=== PATIENT | female | born 1960 | race Caucasian/White ===

== ENCOUNTER 2017-02-19 15:51 | Inpatient (IN) | payer OTHER ==
--- NOTE | ~2017-02-19 | PN ---
Unit #: [id number] #: [id number] Patient: SILVIO COBIAN [id number] [facility] [address] [place] [address] [id number] I MR#: [id number] NAME: SILVIO COBIAN ROOM: P206 Age: 56 Sex: F Admission Date: 02/20/2017 : 1960 Attending Physician: Stefan Morrison M.D. Admitting Physician: Stefan Morrison M.D. Primary Care Physician: Generic Doctor Not In System [facility] PROGRESS NOTES DATE OF SERVICE: 02/21/2017 DISCUSSION Ms. Smith is a 56-year-old female, seen on 02/21/2017. The patient interviewed, chart reviewed, and obtained information from nursing staff. The patient's vital signs; temperature 97.9, pulse 75, blood pressure 122/86. The patient is still very tremulous, anxiety, restlessness, and trouble sleeping, nausea, still having withdrawal from alcohol. Complete review of systems unremarkable. MENTAL STATUS EXAMINATION General appearance, the patient dressed casually. Attention span and concentration, fair. Oriented in place and person. Mood and affect, labile. Speech, monotone. Thought process, concrete. The patient denied any thoughts of harming self or others, but sad and dysphoric. Recent and remote memory, poor. Insight and judgment, poor. DIAGNOSES 1. Alcohol use disorder, severe. 2. Mood disorder, not otherwise specified. ASSESSMENT AND PLAN Advised to continue with current medication and therapeutic protocol. If needed, consider further adjustment of medication. Dictated by... Christoph Leon/shine TD: 02/22/2017 16:01 JOB #: [id number] Unit #: [id number] #: [id number] Patient: SILVIO COBIAN PROGRESS NOTES Page 1 of 1 X Stefan Morrison MD PROGRESS NOTE
--- NOTE | ~2017-02-19 | DS ---
Unit #: [id number] #: [id number] Patient: SILVIO COBIAN [id number] [facility] [address] [place] [address] [id number] I MR#: [id number] NAME: SILVIO COBIAN ROOM: [facility] Age: 56 Sex: F Admission Date: 02/20/2017 : 1960 Discharge Date: 02/25/2017 Attending Physician: Stefan Morrison M.D. Primary Care Physician: Generic Doctor Not In System DISCHARGE SUMMARY REASON FOR ADMISSION Alcohol withdrawal. DIAGNOSTIC STUDIES LABORATORY RESULTS: Urine drug screen positive for benzodiazepine. BUN 5, potassium 3.1, magnesium 1.5. HOSPITAL COURSE The patient was admitted to inpatient unit on 02/20/2017 and discharged on 02/25/2017. The patient was treated on the inpatient unit with detox protocol and detox monitoring. The patient was also followed by the medical doctor for abnormal lab. The patient was treated with expressive therapy, medication management, psychoeducation, and psychotherapy. The patient was responsive to treatment, showed improvement. Subsequently, the patient was discharged with a plan to follow up in outpatient program. DISCHARGE MEDICATIONS Trazodone 50 mg at bedtime for sleep. DISCHARGE DIAGNOSES Psychiatric: Alcohol use disorder, severe, F10.20; mood disorder, not otherwise specified, F32.9. Secondary diagnosis: Deferred. Medical diagnosis: None. Stressors: Psychosocial stressors. DISCHARGE INSTRUCTIONS The patient to follow up in outpatient clinic as per social media manager. CONDITION ON DISCHARGE The patient was pleasant and cooperative. Denied any psychotic symptom or any suicidal ideation. PROGNOSIS Guarded. DIET AND ACTIVITY As tolerated. Unit #: [id number] #: [id number] Patient: SILVIO COBIAN Dictated by... Christoph Leon/shine TD: 02/25/2017 16:51 JOB #: [id number] DISCHARGE SUMMARY Page 1 of 1 X Stefan Morrison MD X DISCHARGE SUMMARY
--- NOTE | ~2017-02-19 | PN ---
Unit #: [id number] #: [id number] Patient: SILVIO COBIAN [id number] [facility] [address] [place] [address] [id number] I MR#: [id number] NAME: SILVIO COBIAN ROOM: P211 Age: 56 Sex: F Admission Date: 02/20/2017 : 1960 Attending Physician: Stefan Morrison M.D. Admitting Physician: Stefan Morrison M.D. Primary Care Physician: Generic Doctor Not In System [facility] PROGRESS NOTES DATE OF SERVICE: 02/23/2017 DISCUSSION Ms. Smith is a 56-year-old female, seen on 02/23/2017. The patient is currently detoxing from alcohol, still having anxiety, nervousness, and tremor, but reports feeling better. The patient's vital signs are getting better, still meeting criteria for withdrawal medication Ativan. Vital signs; temperature 97.9, pulse 75, and blood pressure 122/86. Complete review of systems unremarkable. MENTAL STATUS EXAMINATION General appearance, the patient dressed casually, somewhat shaky, nervous, hand tremors. Attention span and concentration, fair. Oriented in place and person. Mood and affect, labile. Speech, regular rate. Thought process, goal directed. The patient denied any thoughts of harming self or others or any psychotic symptom. Recent and remote memory, poor. Insight and judgment, poor. DIAGNOSES Alcohol withdrawal. ASSESSMENT AND PLAN Advised to continue with current medication and therapeutic protocol. If needed, consider further adjustment of medication. Dictated by... Christoph Leon/shien TD: 02/24/2017 18:59 JOB #: [id number] Unit #: [id number] #: [id number] Patient: SILVIO COBIAN [facility] PROGRESS NOTES Page 1 of 1 X Stefan Morrison MD PROGRESS NOTE
--- NOTE | ~2017-02-19 | PA ---
Unit #: [id number] #: [id number] Patient: SILVIO COBIAN [id number] [facility] [address] [place] [address] [id number] I MR#: [id number] NAME: SILVIO COBIAN ROOM: P206 Age: 56 Sex: F Admission Date: 02/20/2017 : 1960 Date of Assessment: 02/20/2017 Attending Physician: Stefan Morrison M.D. Admitting Physician: Stefan Morrison M.D. Primary Care Physician: Generic Doctor Not In System PSYCHIATRIC ASSESSMENT INFORMANTS The patient reliability, fair informant and chart reliability, good. CHIEF COMPLAINT Alcohol withdrawal. HISTORY OF PRESENT ILLNESS Ms. Smith is a 56-year-old female, presented with the above-mentioned complaint. The patient reported needing help with the alcohol detox. The patient has a history of previous treatment at [facility] and [facility] in 2004 and 2014 respectively. The patient is currently disabled. Reported using alcohol, drinking one-fifth of vodka, it made her sick to the stomach. The patient reported increase in depressive symptom, but denied any suicidal or homicidal ideation. Denied any auditory or visual hallucination. The patient's blood alcohol level was 0.237. The patient reported history of seizure and hypertension. The patient denied any medical condition. The patient reported alcohol, age of onset 18 and marijuana, age of onset 18. The patient reported longest period of sobriety 6 months, last period of sobriety in 06/2016. The patient reported consequences from abuse including legal problem, medical problem, and DUI. The patient reported history of blackouts and withdrawal symptom, but no HIV, hepatitis, or IV drug use. The patient reported abdominal cramping, depressed mood, headache, irritability, and sleep problems. REVIEW OF SYSTEMS HEENT: Eyes, clear. Ears, nose, mouth, and throat; clear. CARDIOVASCULAR: Unremarkable. RESPIRATORY: Unremarkable. GI: Unremarkable. : Unremarkable. SKIN: Unremarkable. LYMPH NODE: Unremarkable. NEUROLOGIC: Unremarkable. ENDOCRINE: Unremarkable. HEMATOLOGIC: Unremarkable. ALLERGIC/IMMUNOLOGIC: Unremarkable. MUSCULOSKELETAL: Muscle strength and tone, no atrophy or abnormal movement. Gait normal. MENTAL STATUS EXAMINATION CONSTITUTIONAL: Measurement of vital signs; temperature 98.0, heart rate 98, respiratory rate 18, oxygen saturation 97%, and blood pressure 122/88. Unit #: [id number] #: [id number] Patient: SILVIO COBIAN Height 5 feet 2 inches and weight 148 pounds. GENERAL APPEARANCE: The patient dressed casually. The patient did not show any facial deformity. MUSCULOSKELETAL: Please see above. PSYCHIATRIC EXAMINATION Description of speech; regular rate, normal volume, normal articulation, coherent, and spontaneous. Description of thought process, goal directed. Description of association, intact. Description of abnormal psychotic thinking; the patient denied any hallucinations or delusions, but mood lability and substance abuse. No suicidal or homicidal ideation. Description of the patient's judgment: Concerning everyday activity, poor. Social situation, poor. Concerning psychiatric condition, poor. Complete mental status examination; oriented in time, place, and person. Recent and remote memory, fair. Attention span and concentration, fair. Language, able to name object and repeat phrases. Fund of knowledge, aware of current event and passive vocabulary intact. Mood and affect, sad and dysphoric. Insight and judgment, fair to poor. ASSETS AND LIABILITIES Assets, the patient is articulate and able to take care of her ADL. Liability, history of substance abuse and alcohol abuse. ADMITTING DIAGNOSES Psychiatric: Alcohol use disorder, severe, F10.20; mood disorder, not otherwise specified, F32.9; and rule out major depressive disorder, recurrent, F33.2. Secondary diagnosis: Deferred. Medical diagnosis: None. Stressors: Psychosocial stressors. PSYCHIATRIC PLAN AND TREATMENT GOAL AND DISCHARGE PLAN 1. Advised to admit the patient on the inpatient unit. Provide safe, supportive, and structured environment. 2. Ordered labs; CBC, CMP, UA, and UDS. 3. Detox protocol and detox monitoring. 4. If needed, consider further adjustment of medication. The patient to attend all the programing, group therapy, individual therapy, and chemical dependency group. TREATMENT GOAL To attain euthymic mood, gain insight into her problem, and learn coping skills. DISCHARGE PLAN Plan to stabilize the patient and consider followup in outpatient program. ESTIMATED LENGTH OF STAY 3 to 5 days. Dictated by..Cr Morrison M.D. Unit #: [id number] #: [id number] Patient: SILVIO COBIAN SZC/modl TD: 02/20/2017 17:35 JOB #: [id number] PSYCHIATRIC ASSESSMENT Page 1 of 1 X Stefan Morrison MD PSYCHIATRIC ASSESSMENT
--- NOTE | ~2017-02-19 | PN ---
Unit #: [id number] #: [id number] Patient: SILVIO COBIAN [id number] [facility] [address] [place] [address] [id number] MR#: [id number] NAME: SILVIO COBIAN ROOM: P206 Age: 56 Sex: F Admission Date: 02/20/2017 : 1960 Attending Physician: Stefan Morrison M.D. Admitting Physician: Stefan Morrison M.D. Primary Care Physician: Generic Doctor Not In System [facility] PROGRESS NOTES DATE OF SERVICE: 02/22/2017 DISCUSSION Ms. Smith is a 56-year-old female, seen on 02/22/2017. The patient interviewed, chart reviewed, and obtained information from nursing staff. The patient is still having hand tremors. Reported anxious, nervous. Currently on detox protocol. The patient is tolerating medication fairly well. No side effects from medication. REVIEW OF SYSTEMS Complete review of systems is unremarkable. MENTAL STATUS EXAMINATION General appearance, the patient dressed casually. Attention span and concentration, fair. The patient's vital signs; temperature 97.9, pulse 75, blood pressure 122/86. Mood and affect, labile. Speech, monotone. Thought process, concrete. The patient denied any thoughts of harming self or others. Recent and remote memory, poor. Insight and judgment, poor. DIAGNOSIS Alcohol use disorder, severe. ASSESSMENT AND PLAN Advised to continue with current medication and therapeutic protocol. If needed, consider further adjustment of medication. Dictated by... Christoph Leon/shine TD: 02/23/2017 01:25 JOB #: [id number] Unit #: [id number] #: [id number] Patient: SILVIO COBIAN PROGRESS NOTES Page 1 of 1 X Stefan Morrison MD PROGRESS NOTE
--- NOTE | ~2017-02-19 | PN ---
Unit #: [id number] #: [id number] Patient: SILVIO COBIAN [id number] [facility] [address] [place] [address] [id number] I MR#: [id number] NAME: SILVIO COBIAN ROOM: Formerly Named [facility] Age: 56 Sex: F Admission Date: 02/20/2017 : 1960 Attending Physician: Stefan Morrison M.D. Admitting Physician: Stefan Morrison M.D. Primary Care Physician: Generic Doctor Not In System [facility] PROGRESS NOTES DATE OF SERVICE: 02/24/2017 DISCUSSION Ms. Smith is a 56-year-old female, seen on 02/24/2017. The patient reports feeling better and decrease in anxiety and withdrawal symptoms from alcohol. The patient's vital signs; temperature 97.9, pule 75, respirations 18, blood pressure 122/86. REVIEW OF SYSTEMS Complete review of systems is unremarkable. MENTAL STATUS EXAMINATION General appearance, the patient dressed casually. Attention span and concentration, fair. Oriented in place and person. Mood and affect, labile. Speech, monotone. Thought process, concrete. The patient denied any thoughts of harming self or others. Recent and remote memory, poor. Insight and judgment, poor. DIAGNOSIS Alcohol use disorder, severe. ASSESSMENT AND PLAN Advised to continue with current treatment on the inpatient unit. Continue with detox protocol. If needed, consider further adjustment of medication. Dictated by... Christoph Leon/shine TD: 02/25/2017 08:22 JOB #: [id number] Unit #: [id number] #: [id number] Patient: SILVIO COBIAN PROGRESS NOTES Page 1 of 1 X Stefan Morrison MD PROGRESS NOTE
--- NOTE | ~2017-02-19 | HP ---
Unit #: [id number] #: [id number] Patient: SARAH COBIAN [id number] [place] [address] [id number] I MR#: [id number] NAME: SARAH COBIAN ROOM: P206 Age: 56 Sex: F Admission Date: 02/20/2017 : 1960 Attending Physician: Stefan Morrison M.D. Admitting Physician: Stefan Morrison M.D. Primary Care Physician: Generic Doctor Not In System HISTORY AND PHYSICAL HISTORY OF PRESENT ILLNESS Sarah is a 56-year-old female admitted on 02/20/[address] [place] [address] for detox for alcohol. PAST MEDICAL HISTORY 1. Seizure disorder. 2. Hypertension. PAST SURGICAL HISTORY None. ALLERGIES No known drug allergies. SOCIAL HISTORY No tobacco or illegal drug use. She does report binge alcohol use. She is currently and living alone. FAMILY HISTORY Noncontributory. REVIEW OF SYSTEMS CONSTITUTIONAL: No fever or chills. HEENT: Denies any sore throat, ear pain or runny nose. CARDIOVASCULAR: Denies chest pain, irregular heart rhythm or palpitations. CHEST: Denies shortness of breath or cough. No hemoptysis. GASTROINTESTINAL: Denies nausea, vomiting, diarrhea or chronic constipation. ENDOCRINE: Denies history of increased thirst or urination. No recent significant weight loss or gain. GENITOURINARY: Denies dysuria, frequency, or hematuria. SKIN: Denies any rashes. HEMATOLOGIC: Denies history of increased bleeding or bruising. MUSCULOSKELETAL: Denies any hot, swollen joints. No generalized muscle pain. NEUROLOGIC: Denies problems with vision or speech. No frequent, severe headaches. No numbness, tingling or weakness in any extremities. Denies loss of bladder or bowel control. CURRENT MEDICATIONS Patient reports taking Keppra, Neurontin, Topamax and atenolol. However, pharmacy reports that she has not refilled any of these medicines since August 2016. She is unsure when she last took them. Unit #: [id number] #: [id number] Patient: SARAH COBIAN PHYSICAL EXAMINATION GENERAL: Alert, oriented, in no acute distress. VITAL SIGNS: Blood pressure 122/88, heart rate 98, respirations 18, temperature 98.0. HEIGHT: 5 feet 2. WEIGHT: 148 pounds. SKIN: Warm and dry without rash or lesion. HEENT: Normocephalic. TMs not viewed. Oral and nasal passages clear. Conjunctivae clear. PERRLA. EOMs intact. NECK: Supple without lymphadenopathy or thyromegaly. HEART: Regular rate and rhythm without murmur. LUNGS: Clear. ABDOMEN: Soft, nontender, without masses or hepatosplenomegaly. : Not done. EXTREMITIES: No evidence of cyanosis, clubbing or edema. Moves all without focal deficit. NEUROLOGICAL: Grossly within normal limits. Cranial Nerves: II: Visual rivers are intact. III, IV AND : Extraocular movements are intact. Pupils are equal, round and reactive to light. V: Facial sensation is grossly normal. VII: Facial movements and expression are normal. VIII: Auditory acuity grossly intact. IX, X: Uvula is midline. Phonation is normal. XI: Patient shrugs shoulders and turns head normally. XII: Tongue protrudes in the midline. Sensory and Motor Function: Sensory and motor sensation is grossly normal. Motor: moves all extremities well. Coordination: Gait is normal. Deep Tendon Reflexes: Intact. IMPRESSION 1. Psychiatric admission. 2. History of seizure disorder. 3. Hypertension. RECOMMENDATIONS PSYCHIATRIC: Per psychiatrist. MEDICAL: No contraindications to participate in facility's activities. MEDICAL PROGNOSIS Good. MEDICAL CONDITION Stable. Dictated by..Jose Nichols/argentina TD: 02/20/2017 17:46 JOB #: [id number] Unit #: [id number] #: [id number] Patient: ARANZA,SARAH HISTORY AND PHYSICAL Page 1 of 1 X CANDIS RUELAS APRN HISTORY AND PHYSICAL
--- NOTE | ~2017-02-19 | CO ---
Unit #: [id number] #: [id number] Patient: SARAH COBIAN [id number] [place] [address] [id number] I MR#: [id number] NAME: SARAH COBIAN ROOM: P206 Age: 56 Sex: F Admission Date: 02/20/2017 : 1960 Attending Physician: Stefan Morrison M.D. Primary Care Physician: Maury Doctor Not In System Consultation Date: 02/20/2017 CONSULTATION REPORT HISTORY OF PRESENT ILLNESS Sarah reports she has a history of seizure disorder and hypertension. She reports that she has been taking Keppra, Neurontin, Topamax, and atenolol, but cannot recall her last use. Per pharmacy, she has not filled any of these medications since 08/2016. She denies having any seizures for at least the past 6 months. She cannot recall exactly when her last seizure was. She has no other complaints. PHYSICAL EXAMINATION CARDIAC: Regular rate and rhythm. No murmurs, gallops, or rubs. RESPIRATORY: Clear to auscultation bilaterally. VITAL SIGNS: Blood pressures 122/88 and 149/106. ASSESSMENT AND PLAN 1. Hypertension. We will begin clonidine 0.1 mg p.o. q.12 hours p.r.n., blood pressures greater than 140/90. 2. Seizure disorder. We are unable at this time to verify any of the patient's medications. If she does begin to have seizures, please let us know and we will start Keppra. However, at this time due to unable to verify medications and her history of last seizure greater than 6 months ago, we will not start Keppra. The patient was instructed to follow up with her primary care provider. Dictated by... Jose Lomax/shine TD: 02/21/2017 01:38 JOB #: [id number] CONSULTATION REPORT Page 1 of 1 X CANDIS RUELAS APRN CONSULTATION REPORT
[2017-02-19] MEDS ORDERED: SEROQUEL300 M1 PO (20:33)
[2017-02-19] MEDS ORDERED: NEURONTIN800 MG PO (20:33)
== END 2017-02-25 10:50 | DRG 885 ==
LOC: P2S 02-20 06:07
PROC: HZ2ZZZZ Detoxification Services for Substance Abuse Treatment (ICD-10-PCS; principal; 2017-02-20)
DX: F33.2 Major depressive disorder, recurrent severe without psychotic features (principal); G40.909 Epilepsy, unspecified, not intractable, without status epilepticus; I10 Essential (primary) hypertension; Y90.7 Blood alcohol level of 200-239 mg/100 ml
CPT/HCPCS: 86592

== ENCOUNTER 2017-02-19 17:06 | Emergency (ER) | payer OTHER ==
--- NOTE | ~2017-02-19 | EKG ---
PATIENT: SILVIO COBIAN UNIT #: [id number] Ventricular Rate: 89 BPM Atrial Rate: 89 BPM P-R Interval: 164 ms QRS Duration: 60 ms Q-T Interval: 396 ms QTC Calculation(Bezet): 481 ms P [place]: 43 degrees Calculated R [place]: 7 degrees Calculated T [place]: 51 degrees Diagnosis Line: Normal sinus rhythm Diagnosis Line: Septal infarct , age undetermined Diagnosis Line: Abnormal ECG Diagnosis Line: No previous ECGs available Diagnosis Line: Confirmed by BISHNU DALY MD ([id number]) on Diagnosis Line: 02/21/2017 10:42:42 AM INTERPRETING MDHunter ZAMORANO
--- NOTE | ~2017-02-19 | CT71 ---
[facility] A Service of [facility] RADIOLOGY TEXT RESULTS PATIENT: SILVIO COBIAN LOCATION: [facility] : [birth year] UNIT #: [id number] AGE: [address]: Jeannie Ram MD SEX: F ORDER DR: [id number] [facility]. [place], [place] [address] [id number] MR#: [id number] Acc #: [id number] NAME: SIVLIO COBIAN : 1960 SEX: F STUDY DATE/TIME: 02/19/2017 19:25 UNIT: CARLO ROOM: STUDY DESCRIPTION: CT Head Wo Contrast Attending Physician: Jeannie Ram M.D. Ordering Physician: Jeannie Ram M.D. Primary Care Physician: No Primary Care Physician MEDICAL IMAGING REPORT This report is preliminary unless electronic signature is present EXAM CT head, noncontrast, 02/19/17. HISTORY 56-year-old female in the ED after head injury. Fell, striking head. Ethanol intoxication is reported. TECHNIQUE CT examination of the head without IV contrast. This CT exam was performed with one or more of the following radiation dose reduction techniques: automatic exposure control, adjustment of mA and/or kV according to patient size, and iterative reconstruction. FINDINGS No acute intracranial abnormality is identified, and there is no visible skull fracture. Mild generalized cerebral atrophy and cerebellar atrophy. Mild diffuse low-attenuation white matter changes are nonspecific but likely related to chronic microvascular disease. No evidence of intracranial hemorrhage, mass, mass effect, cerebral edema, hydrocephalus or additional abnormality. IMPRESSION 1. No acute intracranial abnormality or visible skull fracture. 2. Mild diffuse chronic changes as noted above. Dictated by... Kings Taylor M.D. THIS IS AN ELECTRONICALLY VERIFIED REPORT Kings Taylor M.D. at 02/23/2017 10:33 AM [facility] A Service of [facility] RADIOLOGY TEXT RESULTS PATIENT: SILVIO COBIAN LOCATION: [facility] : 64 UNIT #: [id number] AGE: [address]: Jeannie Ram MD SEX: F ORDER DR: FRED/tanmay TD: 02/19/2017 23:58 JOB #: [id number] MEDICAL IMAGING REPORT Page 1 of 1 COPY
[2017-02-19 17:52] LABS: BASOPHIL# 0.3 X10e3 (0-0.3); BASOPHIL% 4.7 % (0-2.5); EOSINOPHIL# 0.1 X10e3 (0-0.7); EOSINOPHIL% 1.7 % (0.0-7.0); HEMATOCRIT 36.2 % (35.0-45.0); HEMOGLOBIN 11.9 gm/dL (12.0-16.0); LYMPHOCYTE% 33.4 % (17.0-45.0); MEAN CELL VOLUME 92.5 FL (83-96); MEAN CORPUSCULAR HEMOGLOBIN 30.5 PG (28-34); MEAN CORPUSCULAR HGB CONC 32.9 g/dL (30-36); MEAN PLATELET VOLUME 6.7 FL (6.5-11.5); MONOCYTE# 0.7 X10e3 (0-1.0); MONOCYTE% 12.1 % (3.0-12.0); NEUTROPHIL# 2.9 X10e3 (1.5-7.1); NEUTROPHIL% 48.1 % (40-75); PLATELET COUNT 401 X10e3 (140-420); RED BLOOD COUNT 3.91 X10e (3.90-5.30); RED CELL DISTRIBUTION WIDTH 15.9 % (11.0-15.5); WHITE BLOOD COUNT 6.1 X10e3 (4.0-10.5)
[2017-02-19 17:54] LABS: DIFF IND NO
[2017-02-19 18:13] LABS: PARTIAL THROMBOPLASTIN TIME 25.6 SECONDS (23.5-31.3)
[2017-02-19 18:27] LABS: ALBUMIN SERUM 4.3 g/dL (3.5-5.0); ALKALINE PHOSPHATASE 89 U/L (32-92); ALT (SGPT) 39 U/L (10-40); AMYLASE 36 U/L (0-46); AST (SGOT) 44 U/L (10-42); BILIRUBIN,TOTAL 0.4 mg/dL (0.2-2.0); BLOOD UREA NITROGEN 5 mg/dL (9-23); BUN/CREATININE RATIO 5.55; CALCIUM SERUM 9.6 mg/dL (8.4-10.2); CARBON DIOXIDE 21 mmol/L (22-31); CHLORIDE 100 mmol/L (100-111); CREATININE SERUM 0.9 mg/dL (0.6-1.4); GLOM FILT RATE Estimated 72.5 mL/min (>60); GLUCOSE FASTING 82 mg/dL (70-110); LIPASE 50 U/L (22-51); MAGNESIUM 1.5 mg/dL (1.6-3.0); PROTEIN TOTAL SERUM 7.8 g/dL (6.0-8.3); SODIUM 136 mmol/L (135-145)
[2017-02-19 18:31] LABS: URINE SOURCE CLEAN CATCH
[2017-02-19 18:34] LABS: BILIRUBIN, DIRECT <0.1 mg/dL (0.0-0.2); BILIRUBIN,INDIRECT 0.3 mg/dL (0.0-0.9); POTASSIUM 3.1 mmol/L (3.5-5.1)
[2017-02-19 18:36] LABS: ALCOHOL BLOOD 237 mg/dL (0)
[2017-02-19 18:52] LABS: AMPHETAMINE NEG (NEG); BARBITURATES NEG (NEG); BENZODIAZEPINES POS (NEG); COCAINE NEG (NEG); MARIJUANA NEG (NEG); OPIATES NEG (NEG); TRICYCLIC ANTIDEPRESSANTS NEG (NEG); U METHADONE NEG (NEG)
[2017-02-19 18:54] LABS: URINE APPEARANCE CLEAR; URINE BILIRUBIN NEG (NEG); URINE BLOOD NEG (NEG); URINE COLOR YELLOW; URINE GLUCOSE NEG (NEG); URINE KETONE NEG (NEG); URINE LEUKOCYTE ESTERASE 1+ (NEG); URINE NITRATE NEG (NEG); URINE PH 7.5 (5-8); URINE PROTEIN NEG (NEG); URINE SPECIFIC GRAVITY 1.003 (1.003-1.035); URINE UROBILINOGEN 0.2 MG/DL (NEG)
[2017-02-19 18:56] LABS: URBCS1 AUWI 0-2 /[HPF] (0-2); URINE BACTERIA AUWI NEG (NEGATIVE); URINE SQUAMOUS EPITHELIAL CELL OCC /[HPF]; UWBCS1 AUWI 0-2 (0-5)
[2017-02-19 18:58] LABS: CULTURE INDICATED? NO
[2017-02-19] MEDS ORDERED: SEROQUEL300 M1 PO (20:33)
[2017-02-19] MEDS ORDERED: NEURONTIN800 MG PO (20:33)
== END 2017-02-20 05:33 ==
LOC: CED 17:06
PROVIDERS: Student in an Organized Health Care Education/Training Program
DX: F10.229 Alcohol dependence with intoxication, unspecified (principal); Y90.7 Blood alcohol level of 200-239 mg/100 ml; F10.239 Alcohol dependence with withdrawal, unspecified; E83.42 Hypomagnesemia; I10 Essential (primary) hypertension; G40.909 Epilepsy, unspecified, not intractable, without status epilepticus
CPT/HCPCS: 36415; 70450; 80048; 80076; 80307; 81003; 82150; 83690; 83735; 85025; 85610; 85730; 93005; 96361; 96374; 96375; 96376; 99285; C9113; G0480; J1200; J1953; J2060; J2405